=== PATIENT | male | born 1980 | race Caucasian/White ===

== ENCOUNTER 2016-07-19 11:48 | Emergency (ER) | payer SELFPAY ==
[~2016-07-19] VITALS: Ht 162.6 cm; Wt 52.2 kg
[2016-07-19] MEDS ORDERED: NALOXONE HCL 0.4 MG/ML AMPUL ONE (11:52)
--- NOTE | 2016-07-19 11:55 | NUR ---
PT BIB [facility] FOR SUSPECTED DRUG OD. UNKNOWN DRUG USE. PER RESCUE, PT WAS BRADYPNEIC AND HYPOTENSIVE, RECEIVED INTRANASAL NARCAN [employer] BAILIFF. RECEIVED PT ALERT AND VERBALLY RESPONSIVE BUT DISORIENTED. PT ARGUED WITH STAFF UPON INITIAL ASSESSMENT STATING "GIVE ME THE POPTARTS. SHE WON'T GIVE ME THE POPTARTS". PT IS ORIENTED TO SELF AND PLACE. RESP EVEN UNLABORED, OXYGENATING WNL ON ROOM AIR. SKIN WARM NONDIAPHORETIC. NAD NOTED. UNWILLING OR UNABLE TO ANSWER FURTHER QUESTIONS OR PROVIDE MEDICAL HISTORY. IN ER BED 12 ON MONITOR.
[2016-07-19] MEDS: NALOXONE HCL 0.4 MG/ML AMPUL IV ONE (11:58)
[2016-07-19] MEDS ORDERED: ONDANSETRON HCL/PF 4 MG/2 ML VIAL ONE (12:00)
[2016-07-19] MEDS: ONDANSETRON HCL/PF 4 MG/2 ML VIAL IV ONE (12:08)
--- NOTE | 2016-07-19 12:11 | NUR ---
PT MORE ALERT NOW, MOVING AROUND ON BED AND YELLING AT STAFF. VSS. RESP EVEN UNLABORED.
--- NOTE | 2016-07-19 12:32 | NUR ---
PT PROVIDED URINE BY URINAL
--- NOTE | 2016-07-19 15:45 | NUR ---
PT URINATED ON HIMSELF AND THE FLOOR. PT STILL DOES NOT MAKE SENSE SOMETIMES WHEN SPOKEN TO. NAD NOTED. VSS. PT CLEANED AND LINENS CHANGED.
--- NOTE | 2016-07-19 17:51 | NUR ---
RESTING QUIETLY, NAD NOTED. EASILY AROUSABLE TO VERBAL STIMULUS.
--- NOTE | 2016-07-19 18:49 | NUR ---
IV removed. Catheter intact and site benign. Pressure and 4x4 applied to site. No bleeding noted. PT DISCHARGED; REFUSED TO SIGN DISCHARGE PAPERWORK OR VERBALIZE UNDERSTANDING. REFUSED TO ACCEPT DISCHARGE PAPERS. ESCORTED FROM ER BY SECURITY, WITH STEADY GAIT.
[2016-07-19 18:51] VITALS: BP 112/69
== END 2016-07-19 18:51 | disposition home or self-care (01) ==
LOC: ER 11:52
DX: F11.20 Opioid dependence, uncomplicated (principal); E11.9 Type 2 diabetes mellitus without complications
CPT/HCPCS: 96374; 96375; 99284; A4606; J2310; J2405; Z7610

== ENCOUNTER 2016-10-04 19:53 | Emergency (ER) | payer SELFPAY ==
[~2016-10-04] VITALS: Ht 162.6 cm; Wt 52.2 kg
--- NOTE | 2016-10-04 20:04 | NUR ---
PT BIB RA AND TAKEN TO ROOM #4 WITH A C/O LT EYEBROW LAC S/P FALLING ASLEEP AFTER DOING DRUGS AND HITTING HIS HEAD ON A WALL. PT IS AA&O X3. PT IS ON THE MONITOR AND CONTINUOUS PULSE OX. VSS.
--- NOTE | 2016-10-04 20:10 | NUR ---
DG ALICEA IS AT THE BEDSIDE CLEANING LACERATION WITH NS.
--- NOTE | 2016-10-04 20:24 | NUR ---
DG ALICEA IS AT THE BEDSIDE.
[2016-10-04] MEDS ORDERED: IV NS 0.9% 2,000 ML ONE (20:29)
[2016-10-04] MEDS ORDERED: INSULIN REGULAR, HUMAN 100 UNIT/ML 10 ML VIAL ONE (20:30)
[2016-10-04] MEDS ORDERED: INSULIN REGULAR, HUMAN 100 UNIT/ML 10 ML VIAL IV ONE (20:30)
[2016-10-04] MEDS ORDERED: IV NS 0.9% 1,000 ML BAG IV ONE ×2 (20:30)
[2016-10-04] MEDS ORDERED: IV SET PRIMARY 1 EA INFUS.SET MC ONE (20:30)
--- NOTE | 2016-10-04 20:42 | NUR ---
PT'S LT EYEBROW LAC WAS DERMABONDED BY DG ALICEA.
--- NOTE | 2016-10-04 20:43 | NUR ---
ADMINISTERED INSULIN. DOSE CONFIRMED WITH FLAKITA
[2016-10-04 20:52] LABS: BASOPHILS # (AUTO) 0.1 /CMM (0.0-0.2); BASOPHILS % (AUTO) 0.6 % (0.0-2.0); EOSINOPHILS # (AUTO) 0.2 /CMM (0.0-0.7); EOSINOPHILS % (AUTO) 2.3 % (0.0-6.0); HEMATOCRIT 33 % (39-51); LYMPHOCYTES % (AUTO) 19.8 % (20.0-44.0); MEAN CORPUSCULAR HEMOGLOBIN 33 PG (26.0-33.0); MEAN CORPUSCULAR HGB CONC 33 g/dl (31.0-36.0); MEAN CORPUSCULAR VOLUME 97 fL (80-96); MONOCYTES # (AUTO) 0.3 /CMM (0.1-1.30); MONOCYTES % (AUTO) 3.3 % (2.0-12.0); NEUTROPHILS # (AUTO) 7.8 /CMM (1.8-8.9); PLATELET COUNT (AUTO) 304 /CMM (150-450); RDW COEFFICIENT OF VARIATION 11.8 (11.5-15.0); RED BLOOD CELL COUNT(AUTO) 3.39 MIL/uL (4.5-6.0); WHITE BLOOD COUNT (AUTO) 10.4 K/uL (4.3-11.0)
[2016-10-04 21:09] LABS: CALCIUM, SERUM 7.9 mg/dL (8.5-10.1); POTASSIUM 3.6 mmol/L (3.5-5.1)
--- NOTE | 2016-10-04 21:15 | NUR ---
ACCUCHECK TAKEN. BS = 423. DG ALICEA IS AWARE.
--- NOTE | 2016-10-04 21:58 | NUR ---
IV removed. Catheter intact and site benign. Pressure and 4x4 applied to site. No bleeding noted. Patient discharged to home in stable condition. Written and verbal after care instructions given. Patient verbalizes understanding of instruction. PT REC'D AN EGG SALAD SANDWICH. PT AMBULATED OUT WITH A STEADY GAIT. VSS.
[2016-10-04 21:59] VITALS: BP 98/72
== END 2016-10-04 21:59 | disposition home or self-care (01) ==
LOC: ER 19:53
DX: S01.112A Laceration without foreign body of left eyelid and periocular area, initial encounter (principal); F11.10 Opioid abuse, uncomplicated; E10.649 Type 1 diabetes mellitus with hypoglycemia without coma; Z59.0 Homelessness; D64.9 Anemia, unspecified; E87.8 Other disorders of electrolyte and fluid balance, not elsewhere classified; D75.89 Other specified diseases of blood and blood-forming organs; Z79.4 Long term (current) use of insulin; W19.XXXA Unspecified fall, initial encounter; Y93.89 Activity, other specified; Y92.89 Other specified places as the place of occurrence of the external cause; Y99.8 Other external cause status
CPT/HCPCS: 36415; 80048-TC; 82962-TC; 85025-TC; A4606; A6402; J1815; J7030; Z7610

== ENCOUNTER 2018-01-09 00:07 | Inpatient (IN) | payer MEDICAID ==
[~2018-01-09] VITALS: Ht 170.2 cm; Wt 50.3 kg
--- NOTE | 2018-01-09 00:14 | NUR ---
ER MD BIRD AT BEDSIDE
--- NOTE | 2018-01-09 00:15 | NUR ---
POLO RA/ [employer] IN CUSTODY FROM RESIDENTIAL FOR OD. NARCAN GIVEN PRECISION DYER. AA/X1. AROUSABLE TO PAIN ONLY. NO S/S OF SOB. SKIN PINK, WARM, DRY. NO TRAUMA NOTED. PEDAL PULSES PRESENT. MOVES ALL EXTREMITIES WELL. NAD. VSS. WILL CONTINUE TO MONITOR.
[2018-01-09] MEDS ORDERED: IV NS 0.9% 1,000 ML BAG IV ONE (00:30)
[2018-01-09 00:44] LABS: ABG BASE EXCESS 1.9 mmol/L; ABG OXYGEN SATURATION 94.9 % (92.0-98.5); ABG PCO2 41.9 mmHg (35.0-45.0); ABG PH 7.421 (7.350-7.450); ABG PO2 75.6 mmHg (75.0-100.0); COHb 1.4 % (0.5-1.5); MetHb 0.4 % (0.0-1.5); O2Hb 93.2 % (94.0-97.0); SITE, ABG Right Brachial; VENT MODE, BG RA
[2018-01-09 01:08] LABS: BASOPHILS % (AUTO) 0.3 % (0.0-2.0); EOSINOPHILS % (AUTO) 4.5 % (0.0-6.0); HEMATOCRIT 42 % (39-51); HEMOGLOBIN 13.3 g/dL (13.5-17.5); LYMPHOCYTES # (AUTO) 2.9 /CMM (0.8-4.8); LYMPHOCYTES % (AUTO) 28.3 % (20.0-44.0); MEAN CORPUSCULAR HGB CONC 32 g/dl (31.0-36.0); MEAN CORPUSCULAR VOLUME 94 fL (80-96); MONOCYTES # (AUTO) 0.7 /CMM (0.1-1.30); NEUTROPHILS # (AUTO) 6.1 /CMM (1.8-8.9); NEUTROPHILS % (AUTO) 59.9 % (43.0-81.0); PLATELET COUNT (AUTO) 281 /CMM (150-450); RED BLOOD CELL COUNT(AUTO) 4.44 MIL/uL (4.5-6.0); WHITE BLOOD COUNT (AUTO) 10.3 K/uL (4.3-11.0)
[2018-01-09 01:14] LABS: APPEARANCE,URINE CLEAR (CLEAR); BILIRUBIN,URINE NEGATIVE (NEGATIVE); BLOOD, URINE NEGATIVE Ery/uL (NEGATIVE); COLOR,URINE YELLOW (YELLOW); KETONES,URINE NEGATIVE (NEGATIVE); LEUKOCYTE ESTERASE ,URINE NEGATIVE (NEGATIVE); NITRITE, URINE NEGATIVE (NEGATIVE); PH,URINE 7.5 (5.0-8.0); PROTEIN,URINE NEGATIVE (NEGATIVE); UGLUCOSE 3+ mg/dL (NEGATIVE); UROBILINOGEN,URINE 0.2 EU/dL (0.2)
--- NOTE | 2018-01-09 01:16 | NUR ---
PT OFF TO CT
[2018-01-09 01:18] LABS: BACTERIA,URINE None seen /HPF (None Seen); RBC,URINE NONE SEEN /HPF (0-2); SQUAMOUS EPITHELIAL CELL,UR Few /HPF (None Seen); WBC,URINE 0-2 /HPF (0-3)
[2018-01-09 01:29] LABS: INR 1.07 (0.87-1.13)
[2018-01-09 01:33] LABS: CALCIUM, SERUM 9.3 mg/dL (8.5-10.1); CARBON DIOXIDE 29 mmol/L (21-32); CHLORIDE 96 mmol/L (98-107); POTASSIUM 4.2 mmol/L (3.5-5.1); SODIUM SERUM 132 mmol/L (136-145); UREA NITROGEN, BLOOD 9 mg/dL (7-18)
[2018-01-09 01:34] LABS: ALANINE AMINOTRANSFERASE 28 U/L (12-78); ALBUMIN 3.3 g/dL (3.4-5.0); ALKALINE PHOSPHATASE 104 U/L (46-116); ASPARTATE AMINOTRANSFERASE 31 U/L (15-37); BILIRUBIN,DIRECT 0.1 mg/dL (0.0-0.2); BILIRUBIN,TOTAL 0.4 mg/dL (0.2-1.0); PHOSPHORUS 3.5 mg/dL (2.5-4.9); TOTAL PROTEIN, SERUM 8.5 g/dL (6.4-8.2)
[2018-01-09 01:35] LABS: GLUCOSE 642 mg/dL (74-106)
[2018-01-09 01:36] LABS: ACETAMINOPHEN 0 ug/ml (10-30); ALCOHOL, BLOOD < 3 mg/dL (0-0); SALICYLATE 1.8 mg/dL (2.8-20.0)
[2018-01-09 01:44] LABS: TROPONIN I < 0.017 ng/mL (0.00-0.056)
[2018-01-09 01:47] LABS: THYROID STIMULATING HORMONE 1.517 uIU/mL (0.358-3.74)
[2018-01-09] MEDS ORDERED: PIPERACILLIN /TAZOBACTAM 3.375 G in IV D5W 50 ML IV ONE (03:30)
[2018-01-09] MEDS ORDERED: INSULIN REGULAR, HUMAN 100 UNIT/ML 10 ML VIAL SQ ONE (03:30)
[2018-01-09] MEDS ORDERED: PIPERACILLIN /TAZOBACTAM 3.375 G VIAL IV ONE (03:42)
[2018-01-09] MEDS ORDERED: INSULIN REGULAR, HUMAN 100 UNIT/ML 10 ML VIAL ONE (03:42)
[2018-01-09] MEDS ORDERED: IV NS 0.9% 1,000 ML IV PRN (03:50)
[2018-01-09] MEDS ORDERED: Z GUARD REMEDY 2 OZ OINT TP PRN (04:00)
[2018-01-09] MEDS ORDERED: ALBUTEROL FS 2.5 MG/3 ML VIAL.NEB NEB PRN (04:00)
[2018-01-09] MEDS ORDERED: ONDANSETRON HCL/PF 4 MG/2 ML VIAL IVP PRN (04:00)
[2018-01-09] MEDS ORDERED: MAGNESIUM HYDROXIDE 30 ML UDC PO PRN (04:00)
[2018-01-09] MEDS ORDERED: MORPHINE SULFATE INJ 4 MG/ML DISP.SYRIN IV PRN (04:00)
[2018-01-09] MEDS ORDERED: MAG HYDROX/AL HYDROX/SIMETH 30 ML UDC PO PRN (04:00)
[2018-01-09] MEDS ORDERED: HYDROCODONE/APAP 5/325MG 1 EACH TABLET PO PRN (04:00)
[2018-01-09] MEDS ORDERED: ZOLPIDEM TARTRATE 5 MG TABLET PO PRN (04:00)
[2018-01-09] MEDS ORDERED: INSULIN REGULAR, HUMAN 100 UNIT/ML 3 ML VIAL SQ PRN (04:00)
[2018-01-09] MEDS ORDERED: DEXTROSE 50%-WATER 50 ML DISP.SYRIN IV PRN (04:00)
[2018-01-09] MEDS ORDERED: ACETAMINOPHEN 325 MG TABLET PO PRN (04:00)
--- NOTE | 2018-01-09 04:43 | NUR ---
REPORT GIVEN TO POLLO
[2018-01-09] MEDS ORDERED: INSULIN GLARGINE, 100 UNIT/ML CARTRIDGE SQ ONE (04:45)
[2018-01-09] MEDS ORDERED: CEFTRIAXONE 1 G in IV D5W 50 ML IV SCH (05:00)
[2018-01-09] MEDS ORDERED: ENOXAPARIN SODIUM 40 MG/0.4 ML DISP.SYRIN SQ SCH (05:00)
--- NOTE | 2018-01-09 05:00 | NUR ---
ADMITTED FROM ER ,WHO PRESENTED FROM LONG TERM ,WAS FOUND UNRESPONSIVE WITH PUPILS PINPOINT.hX OF DM,HEROIN ABUSE PSYCHE DISORDER. IN ER BLOOD FHZXA=974,LACTIC ACID=2.9.WAS GIVEN IVFLUID NSS 1700 ML,STARTED ON ZOSYN AND REGULAR INSULIN [address] SPINE AND CERVICAL (-),CT HEAD (-),CXR (-).URINE TOX + CANNABINOIDS.RECEIVED PATIENT STILL DROWSY BUT AROUSABLE,UNCOOPERATIVE,REFUSED TO ANSWER AND DOES NOT FOLLOW COMMANDS.
[2018-01-09 06:00] VITALS: BP 124/80
[2018-01-09] MEDS ORDERED: CEFTRIAXONE 1 G VIAL ONE (06:51)
[2018-01-09] MEDS: BLOOD SUGAR DIAGNOSTIC 1 EACH STRIP IN SCH ×3 (07:01→12:18)
[2018-01-09 08:00] VITALS: BP_SYST 130; BP_SYST 134; BP_DIAS 71; BP_DIAS 75
[2018-01-09] MEDS ORDERED: INSU100I14 SQ (08:08)
[2018-01-09] MEDS ORDERED: LISI2.5T2 PO (08:08)
[2018-01-09] MEDS ORDERED: INSU100V7 SQ (08:08)
[2018-01-09 12:00] VITALS: BP_SYST 132; BP_SYST 135; BP_DIAS 75; BP_DIAS 78
[2018-01-09 12:22] LABS: BASOPHILS # (AUTO) 0.1 /CMM (0.0-0.2); BASOPHILS % (AUTO) 0.5 % (0.0-2.0); EOSINOPHILS % (AUTO) 0.8 % (0.0-6.0); HEMATOCRIT 41 % (39-51); HEMOGLOBIN 13.1 g/dL (13.5-17.5); LYMPHOCYTES # (AUTO) 2.4 /CMM (0.8-4.8); LYMPHOCYTES % (AUTO) 19.3 % (20.0-44.0); MEAN CORPUSCULAR HGB CONC 32 g/dl (31.0-36.0); MEAN CORPUSCULAR VOLUME 94 fL (80-96); MONOCYTES # (AUTO) 0.6 /CMM (0.1-1.30); MONOCYTES % (AUTO) 5.2 % (2.0-12.0); NEUTROPHILS # (AUTO) 9.1 /CMM (1.8-8.9); NEUTROPHILS % (AUTO) 74.2 % (43.0-81.0); PLATELET COUNT (AUTO) 301 /CMM (150-450); RDW COEFFICIENT OF VARIATION 13.9 (11.5-15.0); RED BLOOD CELL COUNT(AUTO) 4.34 MIL/uL (4.5-6.0); WHITE BLOOD COUNT (AUTO) 12.2 K/uL (4.3-11.0)
[2018-01-09 12:39] LABS: CALCIUM, SERUM 8.5 mg/dL (8.5-10.1); CREATININE 0.5 mg/dL (0.6-1.3); MAGNESIUM 1.7 mg/dL (1.8-2.4); POTASSIUM 3.2 mmol/L (3.5-5.1)
--- NOTE | 2018-01-09 12:40 | NUR ---
RN NOTE; PATIENT RECEIVED ASLEEP, EASILY AROUSAL. VERBALLY RESPONSIVE, NOT VERY TALKATIVE. ON ROOM AIR. NO BREATHING DISTRESS NOTED. NO S/S OF PAIN & DISCOMFORT NOTED. FALL PRECAUTIONS OBSERVED. SAFETY MEASURES OBSERVED. 0830: ACCU CHECK 122, REPEATED BS 137, DR. TREJO NOTIFIED ABOUT CLARIFICATION FOR LANTUS 20UNITS DUE TO GIVE. 1002: RECEIVED ORDERS FROM DR. TREJO, OK TO GIVE LANTUS 20 UNITS. 1230: BLOOD SUGAR 76, SNACKS GIVEN, LUNCH CONSUMED 50% WITH ENCOURAGEMENT. SAFETY MEASURES OBSERVED. ENCOURAGE TO USE CALL LIGHT FOR ASSISTANCE,.
[2018-01-09 16:00] VITALS: BP 153/66
--- NOTE | 2018-01-09 16:36 | NUR ---
RN NOTE: 1440: PATIENT CALLED FOR HELP, SAID I NEED NORCO 10/325 2 TABS, HAVING SEVERE HEADACHE, RESTLESS LEGS, ANXIETY, CHILLS... DR. TREJO NOTIFIED. WAITING FOR REPLY. SOON MOTORBOAT MECHANIC INBOARD/OUTBOARD MADE AWARE. OFFERED NORCO 5/325 MG 1 TAB, BUT PATIENT REFUSED TO TAKE IT. 1520: NOTED PATIENT SCREAMING, PULLED OUT IV LINE. VERBALIZED WANTS TO LEAVE. CALLED MOTORBOAT MECHANIC INBOARD/OUTBOARD. PER DR. TREJO NO OPIATES TO BE GIVEN. 1530: NOTED PATIENT SLEEPING, NO DISTRESS NOTED. SAFETY MEASURES OBSERVED. 1615: INDUSTRIAL TRAINING SPECIALIST WAS IN ROOM WITH OTHER PATIENT & NOTED PATIENT LEAVING FROM ROOM, SHE TRIED TO TALK TO HIM & HE RAN FROM FLOOR WITH ALL HIS BELONGINGS. CALLED SECURITY & MOTORBOAT MECHANIC INBOARD/OUTBOARD AWARE. DR. TREJO NOTIFIED BY MOTORBOAT MECHANIC INBOARD/OUTBOARD.
== END 2018-01-09 16:15 | disposition left against medical advice (07) | DRG 420 ==
LOC: ER 00:13 → TELE1 04:26
PROVIDERS: ADMIT Internal Medicine
DX: E11.65 Type 2 diabetes mellitus with hyperglycemia (principal); E83.42 Hypomagnesemia; F11.10 Opioid abuse, uncomplicated; Z79.4 Long term (current) use of insulin; Z79.899 Other long term (current) drug therapy; E87.6 Hypokalemia
CPT/HCPCS: 36415; 36600; 70450-TC; 71045-TC; 72125-TC; 80048-TC; 80076-TC; 80305; 81000-TC; 82010-TC; 82803-TC; 82962-TC; 83540-TC; 83605-TC; 83735-TC; 84100-TC; 84443-TC; 84484-TC; 85025-TC; 85730-TC; 87040-TC; 87081-TC; 87086-TC; A4606; G0480; J0696; J1650; J1815; J2405; J2543; J7030; J7060; Z7610

== ENCOUNTER 2018-05-27 17:52 | Inpatient (IN) | payer MEDICAID ==
[~2018-05-27] VITALS: Ht 165.1 cm; Wt 50.4 kg
[~2018-05-27 17:52] MED LIST: INSU100I14 SQ; INSU100V7 SQ; LISI2.5T2 PO
[2018-05-27 20:50] VITALS: BP 107/73
--- NOTE | 2018-05-27 20:50 | NUR ---
QUALITY ANALYST ADMISSION NOTES ADMITTED A 37 Y/O, MALE PATIENT, (DIRECT ADMIT) FROM ANOTHER ACUTE FACILITY, [facility], TRANSPORTED VIA GURNEY. A/O X 1, WITH NON REBREATHER MASK SATING 98 - 100%, UPON ARRIVING TO THE UNIT, CHECKED BLOOD GLUCOSE 238 MG/DL, INITIAL VITAL SIGNS OBTAINED, RESPONDING SLOWLY TO VERBAL STIMULI, RESPONSIVE TO TACTILE STIMULI, ALL SAFETY MEASURES IN PLACED, BED IN LOW LOCK POSITION BEDSIDE RAILS UP X3, WITH IV ACCESS ON HIS RIGHT FOREARM G#18 INTACT AND PATENT, AND LEFT FOREARM G#20 INTACT AND PATENT SL. ASPIRATION PRECAUTION OBSERVED, ADMISSION PROCESS INITIATED, SCRAP COLLECTOR KESHIA MITCHELL MADE AWARE. WILL MONITOR ACCORDINGLY.
[2018-05-27 21:23] LABS: ABG BASE EXCESS 3.4 mmol/L; ABG OXYGEN SATURATION 95.1 % (92.0-98.5); ABG PCO2 34.3 mmHg (35.0-45.0); ABG PH 7.502 (7.350-7.450); ABG PO2 73.4 mmHg (75.0-100.0); AaDO2 114.6 mmHg; COHb 0.8 % (0.5-1.5); MetHb 0.5 % (0.0-1.5); O2Hb 93.9 % (94.0-97.0); SITE, ABG Left Radial; VENT MODE, BG 3 lpm cannula
[2018-05-27] MEDS ORDERED: MAG HYDROX/AL HYDROX/SIMETH 30 ML UDC PO PRN (21:30)
[2018-05-27] MEDS ORDERED: MAGNESIUM HYDROXIDE 30 ML UDC PO PRN (21:30)
[2018-05-27] MEDS ORDERED: ONDANSETRON HCL/PF 4 MG/2 ML VIAL IVP PRN (21:30)
[2018-05-27] MEDS ORDERED: ACETAMINOPHEN 325 MG TABLET PO PRN (21:30)
[2018-05-27 21:37] VITALS: BP 119/76
[2018-05-27] MEDS: ENOXAPARIN SODIUM 40 MG/0.4 ML DISP.SYRIN SQ SCH (21:48)
[2018-05-27] MEDS ORDERED: POTASSIUM CHLORIDE 20 MEQ TAB.PRT.SR PO ONE (22:00)
[2018-05-27] MEDS ORDERED: DEXTROSE 50%-WATER 50 ML DISP.SYRIN IV PRN (22:00)
[2018-05-27] MEDS: BLOOD SUGAR DIAGNOSTIC 1 EACH STRIP VI SCH (22:04)
[2018-05-27] MEDS: IV NS 0.9% 1,000 ML IV PRN (22:04)
[2018-05-27] MEDS: *INSULIN REGULAR(HUMULIN R)HUM 100 UNIT/ML VIAL SQ PRN (22:08)
[2018-05-27] MEDS ORDERED: PIPERACILLIN /TAZOBACTAM 3.375 G VIAL IV ONE (22:23)
[2018-05-27] MEDS ORDERED: VANCOMYCIN 1 GM VIAL ONE (22:24)
[2018-05-27 22:29] VITALS: BP 122/70
[2018-05-27 23:00] VITALS: BP 122/70
[2018-05-27] MEDS ORDERED: VANCOMYCIN 1 GM in IV D5W 250ml IV ONE (23:00)
[2018-05-28] MEDS ORDERED: PIPERACILLIN /TAZOBACTAM 3.375 G in IV D5W 100 ML IV ONE ×2
[2018-05-28 00:10] VITALS: BP 130/74
[2018-05-28 04:00] VITALS: BP 109/68
[2018-05-28] MEDS: IV NS 0.9% 1,000 ML IV PRN ×2 (06:08→15:51)
[2018-05-28 06:47] LABS: BASOPHILS % (AUTO) 0.1 % (0.0-2.0); HEMATOCRIT 37 % (39-51); HEMOGLOBIN 12.1 g/dL (13.5-17.5); LYMPHOCYTES # (AUTO) 2.2 /CMM (0.8-4.8); LYMPHOCYTES % (AUTO) 6.8 % (20.0-44.0); MEAN CORPUSCULAR HGB CONC 33 g/dl (31.0-36.0); MEAN CORPUSCULAR VOLUME 94 fL (80-96); MONOCYTES # (AUTO) 1.7 /CMM (0.1-1.30); MONOCYTES % (AUTO) 5.4 % (2.0-12.0); NEUTROPHILS # (AUTO) 27.9 /CMM (1.8-8.9); NEUTROPHILS % (AUTO) 87.7 % (43.0-81.0); PLATELET COUNT (AUTO) 221 /CMM (150-450); RED BLOOD CELL COUNT(AUTO) 3.95 MIL/uL (4.5-6.0)
[2018-05-28 06:50] LABS: CALCIUM, SERUM 7.8 mg/dL (8.5-10.1); CREATININE 0.7 mg/dL (0.6-1.3); MAGNESIUM 1.7 mg/dL (1.8-2.4); PHOSPHORUS 1.7 mg/dL (2.5-4.9); POTASSIUM 3.2 mmol/L (3.5-5.1)
[2018-05-28] MEDS: INSULIN REGULAR, HUMAN 100 UNIT/ML 3 ML VIAL SQ PRN ×3 (06:55→17:30)
[2018-05-28 06:58] LABS: WHITE BLOOD COUNT (AUTO) 31.8 K/uL (4.3-11.0)
[2018-05-28 07:24] LABS: THYROID STIMULATING HORMONE 1.571 uIU/mL (0.358-3.74)
--- NOTE | 2018-05-28 07:25 | NUR ---
ENTRY LEVEL SALES REPRESENTATIVE NOTES ALL NEEDS ATTENDED AND MET, ENDORSED TO AM NURSE FOR CONTINUITY OF CARE.
--- NOTE | 2018-05-28 07:26 | NUR ---
RN NOTES PT WAS RECEIVED RESTING IN BED AT LOWEST AND LOCKED POSITION WITH SIDE RAILS UP X2, A/O X1, BREATHING IS EVEN AND UNLABORED, NO S/S OF DISTRESS OR PAIN NOTED, IV IS PATENT AND INTACT, WBC NOTED TO BE HIGH AUTOMOTIVE PARTS MANAGER RN UZAIR PANIAGUA MD REGARDING LAB VALUE, SAFETY PRECAUTIONS IN PLACE, CALL LIGHT WITHIN REACH, WILL MONITOR ACCORDINGLY
--- NOTE | 2018-05-28 07:26 | NUR ---
FIELD SERVICE TECHNICIAN NOTES RECEIVED CALL FROM LABS, CRITICAL LAB VALUE, WBC 31.8, NOTIFY MD, AWAITING FOR ORDERS, ENDORSED TO AM NURSE.
[2018-05-28] MEDS: BLOOD SUGAR DIAGNOSTIC 1 EACH STRIP VI SCH ×4 (07:27→21:47)
[2018-05-28 08:00] VITALS: BP 109/72
[2018-05-28] MEDS ORDERED: PIPERACILLIN /TAZOBACTAM 3.375 G in IV D5W 50 ML IV SCH (08:00)
[2018-05-28] MEDS ORDERED: FEE PK DOSING 1 MIN EA MC ONE (08:26)
--- NOTE | 2018-05-28 08:45 | NUR ---
RN NOTE LAB WAS CALLED INFORMING THEM OF STAT LAB DRAW ORDER
[2018-05-28 08:48] LABS: BAND % (MANUAL) 6 % (0.0-5.0); LYMPHOCYTES % (MANUAL) 6 % (16-48); MONOCYTES % (MANUAL) 6 % (0-11.0); NEUTROPHILS % (MANUAL) 82 (42-76)
[2018-05-28] MEDS: VANCOMYCIN 0.75 GM in IV D5W 250 ML IV SCH ×2 (09:38→16:02)
[2018-05-28] MEDS: Magnesium 1GM/D5W 100ML PREMIX 100 ML IV SCH ×2 (09:58→11:07)
--- NOTE | 2018-05-28 10:17 | NUR ---
RN NOTE HOSPITALIST BRITTANY PEACE MADE AWARE OF PT ELEVATED PROCALCITONIN LEVEL
--- NOTE | 2018-05-28 10:38 | NUR ---
Social service assessment requested by ALLISON Juarez for homelessness and heroin use. Pt. is a 37 year old male who was admitted to [facility] for pneumonia/sepsis. SW attempted to meet with pt, however pt. was asleep and was not waking up easily when SW tried to. SW to come back later to reassess.
[2018-05-28] MEDS ORDERED: INSU100I30 SQ (10:50)
[2018-05-28] MEDS ORDERED: BLOO-668 IN (10:50)
[2018-05-28] MEDS: PIPERACILLIN /TAZOBACTAM 3.375 G in IV D5W 100 ML IV SCH ×2 (10:56→18:16)
--- NOTE | 2018-05-28 11:50 | NUR ---
WOUND CARE CONSULT: PT PRESENTS WITH CRACKED SKIN AND CALLUSES TO BILATERAL FEET AND POSTERIOR ANKLE AREAS WITH LONG CURLING TOENAILS, MULTIPLE SCARS AND SCABS TO BODY INCLUDING BILATERAL BUTTOCK AND HIP SCARS, LEFT EAR DARK DISCOLORATION, PRESENT ON ADMISSION. RECOMMEND DPM CONSULT. DEFER TO MD FOR LEFT EAR. RECOMMEND DIETARY FOLLOWUP. WILL SEE PRN. DISCUSSED SKIN PROTECTION WITH NURSING STAFF. MD IN AGREEMENT WITH PLAN OF CARE. Addendum: 05/28/18 at 1152 by DARIO HAMMER WNDNU Amended: Links added.
[2018-05-28] MEDS ORDERED: K PHOS NEUTRAL 250 MG TABLET PO ONE (12:00)
[2018-05-28] MEDS ORDERED: Z GUARD REMEDY 2 OZ OINT TP PRN (12:00)
[2018-05-28] MEDS ORDERED: POTASSIUM CHLORIDE 20 MEQ TAB.PRT.SR PO SCH (12:00)
--- NOTE | 2018-05-28 14:40 | NUR ---
SW went to assess pt. again bedside. However, pt. is still asleep and not waking up easily. Pt. has not eaten his lunch either. SW to assess tomorrow when pt. is more alert and oriented.
[2018-05-28 16:00] VITALS: BP 108/67
[2018-05-28] MEDS: HYDROCODONE/APAP 5/325MG 1 EACH TABLET PO PRN (16:29)
--- NOTE | 2018-05-28 17:30 | NUR ---
RN NOTE BLOOD SUGAR WAS NOTED TO BE 129 AT THIS TIME, NO INSULIN NEEDED OR GIVEN AT THIS TIME ACCORDING TO SLIDING SCALE
--- NOTE | 2018-05-28 17:45 | NUR ---
RN NOTE PT WAS GIVEN BED BATH AT THIS TIME
--- NOTE | 2018-05-28 18:39 | NUR ---
RN CLOSING NOTES PT RESTING IN BED AT LOWEST AND LOCKED POSITION WITH SIDE RAILS UP X2, A/O X2-3, BREATHING IS EVEN AND UNLABORED, NO S/S OF DISTRESS OR PAIN, IV SITES ARE PATENT AND INTACT, SAFETY PRECAUTIONS IN PLACE, CALL LIGHT WITHIN REACH, ALL NEEDS ATTENDED TO, WILL ENDORSE TO SPIRITS MODEL RN FOR ALEXANDER
--- NOTE | 2018-05-28 19:30 | NUR ---
MS RN NOTES RECEIVED ON BED SLEEPING,AROUSABLE TO VERBAL STIMULI,HOMELESS,WITH IVF OF NS AT 150ML/HR RATE,SITE PATENT ON RFA.WITH LFA SALINE LOC FOR MEDS,SANCHEZ CATH IN PLACE DRAINING CLEAR YELLOW OUTPUT.FALL PRECAUTIONS OBSERVED,STAND UP WITH PT.CALL LIGHT IN REACH,NEEDS ANTICIPATED.
[2018-05-28 20:00] VITALS: BP 108/74
[2018-05-28 20:23] VITALS: BP 108/74
[2018-05-28] MEDS: ENOXAPARIN SODIUM 40 MG/0.4 ML DISP.SYRIN SQ SCH (20:41)
[2018-05-28] MEDS: *INSULIN REGULAR(HUMULIN R)HUM 100 UNIT/ML VIAL SQ PRN (21:55)
--- NOTE | 2018-05-28 22:00 | NUR ---
MS RN NOTES ACCU-CHECK BLOOD SUGAR CHECK 153,2 UNITS OF HUMULIN R HELD DUE TO WEAKNESS AND NON EATING.WILL CONTINUE TO MONITOR STATUS.
[2018-05-29] MEDS: VANCOMYCIN 0.75 GM in IV D5W 250 ML IV SCH ×3 (00:54→17:09)
[2018-05-29] MEDS: HYDROCODONE/APAP 5/325MG 1 EACH TABLET PO PRN (00:54)
--- NOTE | 2018-05-29 00:54 | NUR ---
MS RN NOTES C/O MILD CHEST PAIN 4/10 ON PAIN SCALE,MEDICATED WITH NORCO 5/325MG,1 TAB PO GIVEN ORDERED.
[2018-05-29] MEDS: PIPERACILLIN /TAZOBACTAM 3.375 G in IV D5W 100 ML IV SCH ×3 (02:04→17:10)
[2018-05-29] MEDS: BLOOD SUGAR DIAGNOSTIC 1 EACH STRIP VI SCH ×4 (06:13→21:53)
--- NOTE | 2018-05-29 06:15 | NUR ---
MS RN NOTES ACCU-CHECK BLOOD SUGAR CHECK 250,WILL COVER WITH HUMULIN R 6 UNITS PER SLIDING SCALE BY DAY NURSE
--- NOTE | 2018-05-29 06:18 | NUR ---
MS RN NOTES ON BED,SLEPT WITH INTERVALS,APPEARS WEAK,SANCHEZ CATH IN PLACE,IVF IN PROGRESS ON RIGHT FOREARM,FALL PRECAUTION OBSERVED.BED ON LOWEST POSITION AND LOCKED.CALL LIGHT IN REACH,NEEDS ATTENDED.WILL ENDORSE TO DAY NURSE FOR ALEXANDER.
--- NOTE | 2018-05-29 07:30 | NUR ---
RN NOTES RECEIVED PATIENT IN BED SLEEPING, AROUSABLE TO VERBAL STIMULI, ABLE TO MAKE NEEDS KNOW, RESPONDS TO QUESTION APPROPRIATELY BUT WITH EYES CLOSED, DENIES ANY PAIN AT THIS TIME. ON ROOM AIR, NO SOB. WITH IV LINE ON THE RFA G 18: IN PLACE AND INTACT, PATENT ON FLUSHING. WITH NS AT 150ML/HR RATE. LFA G 20: IN PLACE AND INTACT, PATENT ON FLUSHING: HL. PATIENT ABLE TO MOVE ABOUT IN BED. SANCHEZ CATH IN PLACE DRAINING TO CLEAR YELLOW OUTPUT VIA GRAVITY. SAFETY MEASURES OBSERVED AND MAINTAINED. CALL LIGHT PLACED WITHIN EASY REACH, WILL ANTICIPATE NEED AND MONITOR PATIENT CLOSELY.
[2018-05-29 08:00] VITALS: BP 112/72
[2018-05-29 08:11] LABS: CALCIUM, SERUM 7.1 mg/dL (8.5-10.1); CREATININE 0.5 mg/dL (0.6-1.3); MAGNESIUM 1.6 mg/dL (1.8-2.4); PHOSPHORUS 1.6 mg/dL (2.5-4.9); POTASSIUM 3.1 mmol/L (3.5-5.1)
[2018-05-29 08:32] LABS: BASOPHILS % (AUTO) 0.1 % (0.0-2.0); EOSINOPHILS % (AUTO) 0.4 % (0.0-6.0); HEMATOCRIT 36 % (39-51); HEMOGLOBIN 11.6 g/dL (13.5-17.5); LYMPHOCYTES # (AUTO) 2.1 /CMM (0.8-4.8); LYMPHOCYTES % (AUTO) 9.4 % (20.0-44.0); MEAN CORPUSCULAR HGB CONC 33 g/dl (31.0-36.0); MEAN CORPUSCULAR VOLUME 94 fL (80-96); MONOCYTES # (AUTO) 1.1 /CMM (0.1-1.30); MONOCYTES % (AUTO) 5.1 % (2.0-12.0); PLATELET COUNT (AUTO) 207 /CMM (150-450); RED BLOOD CELL COUNT(AUTO) 3.82 MIL/uL (4.5-6.0); WHITE BLOOD COUNT (AUTO) 22.3 K/uL (4.3-11.0)
[2018-05-29] MEDS: INSULIN REGULAR, HUMAN 100 UNIT/ML 3 ML VIAL SQ PRN ×2 (09:03→12:20)
[2018-05-29] MEDS: POTASSIUM CHLORIDE 20 MEQ TAB.PRT.SR PO SCH ×2 (09:52→10:30)
[2018-05-29] MEDS: Magnesium 1GM/D5W 100ML PREMIX 100 ML IV SCH ×2 (09:53→12:41)
[2018-05-29] MEDS: IV NS 0.9% 1,000 ML IV PRN (09:54)
--- NOTE | 2018-05-29 11:29 | NUR ---
SW met with pt. bedside for a psychosocial assessment. Pt. is alert and oriented x 4. Pt. appearance is disheveled. Pt. was cooperative and pleasant with SW during the assessment. Pt. states he is homeless and has been for a year. Prior to being homeless, pt. was living in an apartment. Pt. receives General Relief and food stamps per month. Pt. uses crystal methamphetamines and heroin daily. Pt. has been using both substances for the past two years. Pt. was at [facility] program in [place] in summer 2017. However, pt. did not complete the program. Pt. also has a history of attending the rehab program at [facility] but left the program because they did not prescribe Suboxone. Pt. states he is interested in attending the detox program at [facility]. SCHUYLER to fax clinical referral packet to Goldie Zimmerman at [facility]. Pt. denies any psychiatric history and diagnosis. Pt. uses marijuana occasionally. Pt. smokes 4 to 5 cigarettes per day. SCHUYLER discussed [facility] with pt. and pt. is interested in going to the [place] [facility]. SCHUYLER to offer pt. winter prison placement and homeless resources upon discharge. SCHUYLER faxed clinical referral packet to Goldie Zimmerman at [facility].
[2018-05-29] MEDS ORDERED: POTASSIUM CHLORIDE 20 MEQ TAB.PRT.SR PO SCH (13:00)
[2018-05-29] MEDS ORDERED: POTASSIUM CHLORIDE 20 MEQ TAB.PRT.SR PO ONE (13:15)
[2018-05-29] MEDS ORDERED: NEUTRA PHOS 1 POWD.PACKET NG ONE (15:45)
[2018-05-29 16:00] VITALS: BP 108/75
[2018-05-29] MEDS ORDERED: NEUTRA PHOS 1 POWD.PACKET PO ONE (16:00)
[2018-05-29 16:30] VITALS: BP 108/75
[2018-05-29] MEDS: CLOTRIMAZOLE 1% 15 GM TUBE TP SCH (17:10)
--- NOTE | 2018-05-29 19:30 | NUR ---
RN NOTES PATIENT ENDORSED FOR CONTINUITY OF CARE. ALL NURSING NEEDS ATTENDED AND MET. SAFETY MEASURES IN PLACE AT ALL TIMES. CALL LIGHT WITHIN REACH AT ALL TIMES
--- NOTE | 2018-05-29 19:30 | NUR ---
MS RN NOTES RECEIVED IN THE BATHROOM,SHOWERING,ABLE TO WALK WITH STEADY GAIT.IV ABX INFUSING.SALINE LOCK RIGHT AND LEFT ARM INTACT AND PATENT.CALL LIGHT IN REACH,NEEDS ANTICIPATED.
[2018-05-29 20:00] VITALS: BP 118/71
[2018-05-29] MEDS: ENOXAPARIN SODIUM 40 MG/0.4 ML DISP.SYRIN SQ SCH (20:26)
--- NOTE | 2018-05-29 21:00 | NUR ---
MS RN NOTES FOUND PATIENT HAVING SHOWER AGAIN.
[2018-05-29] MEDS: *INSULIN REGULAR(HUMULIN R)HUM 100 UNIT/ML VIAL SQ PRN (21:58)
[2018-05-29] MEDS ORDERED: INSULIN GLARGINE, 100 UNIT/ML CARTRIDGE SQ SCH (22:00)
--- NOTE | 2018-05-29 22:00 | NUR ---
MS RN NOTES REFUSED IVF AT THIS TIME
--- NOTE | 2018-05-29 22:10 | NUR ---
MS RN NOTES ACCU-CHECK BLOOD SUGAR CHECK 369,CLAIMED HE ALREADY DRINK APPLE JUICE AND ATE PUDDING.COVERED WITH HUMULIN R 10 PER SLIDING SCALE PLUS 8 UNITS OF LANTUS,GIVEN SQ ON LEFT DELTOID
[2018-05-30] MEDS: VANCOMYCIN 0.75 GM in IV D5W 250 ML IV SCH ×2 (00:49→08:36)
[2018-05-30] MEDS: HYDROCODONE/APAP 5/325MG 1 EACH TABLET PO PRN (00:50)
--- NOTE | 2018-05-30 00:50 | NUR ---
MS RN NOTES C/O GENERALIZED PAIN,NORCO 5/325MG,1 TAB PO GIVEN
[2018-05-30] MEDS: PIPERACILLIN /TAZOBACTAM 3.375 G in IV D5W 100 ML IV SCH ×2 (02:07→10:42)
[2018-05-30] MEDS: BLOOD SUGAR DIAGNOSTIC 1 EACH STRIP VI SCH ×2 (05:28→11:36)
--- NOTE | 2018-05-30 05:30 | NUR ---
MS RN NOTES ACCU-CHECK BLOOD SUGAR CHECK 137,HUMULIN R 2 UNITS GIVEN PER SLIDING SCALE
[2018-05-30] MEDS: INSULIN REGULAR, HUMAN 100 UNIT/ML 3 ML VIAL SQ PRN (05:43)
--- NOTE | 2018-05-30 06:08 | NUR ---
MS RN NOTES SHOWERED 3 X AT NIGHT,HAD 1X .BM.VOIDING PER URINALIV ABX TOLERATED WELL,NO DISTRESS.ENDORSE TO DAY NURSE FOR ALEXANDER.
[2018-05-30 06:50] LABS: BASOPHILS % (AUTO) 0.3 % (0.0-2.0); EOSINOPHILS % (AUTO) 0.5 % (0.0-6.0); HEMATOCRIT 35 % (39-51); HEMOGLOBIN 11.8 g/dL (13.5-17.5); LYMPHOCYTES % (AUTO) 19.1 % (20.0-44.0); MEAN CORPUSCULAR HGB CONC 34 g/dl (31.0-36.0); MEAN CORPUSCULAR VOLUME 93 fL (80-96); MONOCYTES % (AUTO) 9.7 % (2.0-12.0); NEUTROPHILS # (AUTO) 7.2 /CMM (1.8-8.9); NEUTROPHILS % (AUTO) 70.4 % (43.0-81.0); PLATELET COUNT (AUTO) 221 /CMM (150-450); RED BLOOD CELL COUNT(AUTO) 3.81 MIL/uL (4.5-6.0); WHITE BLOOD COUNT (AUTO) 10.2 K/uL (4.3-11.0)
[2018-05-30 06:52] LABS: CALCIUM, SERUM 7.5 mg/dL (8.5-10.1); CREATININE 0.6 mg/dL (0.6-1.3); MAGNESIUM 1.7 mg/dL (1.8-2.4); PHOSPHORUS 1.6 mg/dL (2.5-4.9); POTASSIUM 3.5 mmol/L (3.5-5.1)
--- NOTE | 2018-05-30 07:47 | NUR ---
MS RN OPENING NOTES RECEIVED PATIENT IN STABLE CONDITION. IN NO APPARENT DISTRESS. BEDSIDE RAILS ARE UPX2. BED IS LOCKED AND LOWERED. CALL LIGHT IS WITHIN REACH. IV LINE IS INTACT AND PATENT. CALL LIGHT IS WITHIN REACH. WILL CONTINUE TO MONITOR PATIENT.
[2018-05-30 08:00] VITALS: BP 113/73
--- NOTE | 2018-05-30 08:28 | NUR ---
SCHUYLER left a follow up voicemail message for Goldie Zimmerman at [facility] [phone] Ext.[phone] regarding bed availability for pt. for their detox program.
[2018-05-30] MEDS: CLOTRIMAZOLE 1% 15 GM TUBE TP SCH (08:36)
[2018-05-30] MEDS ORDERED: Magnesium 1GM/D5W 100ML PREMIX 100 ML IV SCH (11:30)
--- NOTE | 2018-05-30 11:45 | NUR ---
AT 11:40 PATIENT STATED THAT HE WANTED TO LEAVE AMA. EXPLAINED IMPORTANCE OF PATIENT STAYING TO CONTINUE MEDICAL TREATMENT. PATIENT CONTINUED TO INSIST ON LEAVING. ADVICED THE PATIENT THAT I WOULD NEED A FORM SIGNED AND REMOVE HIS IV LINES (2). PATIENT AGREED. WHEN I RETURNED TO THE ROOM NO MORE THAN 5 MINUTES LATER THE PATIENT HAD LEFT. SECURITY WAS CALLED AND THE STAFF SEARCHED FOR THE PATIENT IN THE HOSPITAL AND IN THE NEARBY AREA. PATIENT WAS NOT FOUND. CALLED THE [place] [employer]PARTMENT TO REPORT THE INCIDENT. INCIDENT #[id number]. NURSING FRAME FEEDER NOTIFIED.
--- NOTE | 2018-05-30 12:18 | NUR ---
SCHUYLER was informed by pt's RN Maksim that pt. is wishing to leave AMA. SCHUYLER met with pt. bedside to discuss him wanting to leave AMA. Pt. is alert and oriented x4. Pt. stated, " I need to go get my EBT card because the office is closed on weekend." SCHUYLER discussed alf options and gave pt. list of [facility] [phone] and explained to him the picked edge sewing machine operator time and location for [facility]. SCHUYLER also gave pt. [facility] homeless Resource Directory. SCHUYLER encouraged pt. to follow up with Goldie at [facility] and gave him TTC contact information. The following resources were provide to the pt: Mental Health clinics [facility]eless [facility] [address] [place] [address] Homeless mentally ill people may be seen at [facility] on a walk-in basis. [facility] [address], 2nd [place] [address] Main Number: [facility] ([facility]): Contact [facility] [address] [place] [address] Clinic stated that walk-ins are welcomed, but they will be a long wait. No appointments. Services: mental health services, medications, community life director for resource linkage. [facility] [place] [address] Healthcare Clinics for Homeless patients [facility] [address], [address] [place]. [place] Hours: M, T, Th, F 8:30AM-4:30PM Walk-ins allowed Provide medical screening and pharmacy [facility] [address] [place] [address] Hours M-F 8AM-3:30PM Walk-ins allowed Provide medical screening and pharmacy [place] [address] [place] [address] [phone] Hours 8AM-4:30PM Walk-ins allowed Provide medical screening and pharmacy Alcohol and Drug Treatment Programs [facility] Substance Abuse Self-helpline ([facility]) Contact number . Call the hotline and the red mud thickener operator will screen and link individual to an appropriate program. Must have Medi-georgina or be Med-georgina eligible. [facility] [address] [place] [address] [facility] (contact Goldie) [address] [place] [address] [facility] Rehabilitation Program (Oriental Orthodox based) [address] [place] [address] (Six months program and need to work for 8 hrs per day while in treatment) [facility] (No insurance required) [facility] [address] [place], [place] [id number] Pt. was provided with a pair of clothing. Homeless Patient Waiver Form was signed by the pt. and placed in pt's chart. Pt. was given a TAP card. JEFFERY Koehler and DARIA Hayden were updated with pt's discharge plan. No other social service needs are requested at this time. SW is available, if needed. Addendum: 05/30/18 at 1231 by MARQUITA VELASQUEZ SW Homeless patient discharge checklist was completed.
[2018-05-30] MEDS ORDERED: K PHOS NEUTRAL 250 MG TABLET PO ONE (13:30)
== END 2018-05-30 11:40 | disposition left against medical advice (07) | DRG 720 ==
LOC: TELE 20:13 → MED 05-28 09:17
PROVIDERS: ADMIT Nurse Practitioner Acute Care; ATTEND Registered Nurse
DX: A41.9 Sepsis, unspecified organism (principal); J69.0 Pneumonitis due to inhalation of food and vomit; G92 Toxic encephalopathy; E43 Unspecified severe protein-calorie malnutrition; R64 Cachexia; E10.42 Type 1 diabetes mellitus with diabetic polyneuropathy; F11.11 Opioid abuse, in remission; B35.1 Tinea unguium; E10.65 Type 1 diabetes mellitus with hyperglycemia; E83.42 Hypomagnesemia; E87.6 Hypokalemia; F12.11 Cannabis abuse, in remission; F15.11 Other stimulant abuse, in remission; Z59.0 Homelessness; Z79.4 Long term (current) use of insulin; B35.3 Tinea pedis
CPT/HCPCS: 36415; 36600; 80048-TC; 80061-TC; 80202-TC; 82140-TC; 82962-TC; 83605-TC; 83735-TC; 84100-TC; 84443-TC; 85025-TC; 87081-TC; 97116-TC; 97530-TC; G0378; J1650; J1815; J2543; J3370; J3475; J7030; J7050; J7060

== ENCOUNTER 2018-07-26 18:18 | Inpatient (IN) | payer MEDICAID ==
[~2018-07-26] VITALS: Ht 165.1 cm; Wt 48.1 kg
[~2018-07-26 18:18] MED LIST changes: +BLOO-668 IN; +INSU100I30 SQ; -INSU100V7 SQ
[2018-07-26] MEDS ORDERED: IBUPROFEN 600 MG TABLET PO ONE ×2 (19:30→20:38)
[2018-07-26 21:53] LABS: BASOPHILS # (AUTO) 0.1 /CMM (0.0-0.2); BASOPHILS % (AUTO) 0.9 % (0.0-2.0); EOSINOPHILS % (AUTO) 0.4 % (0.0-6.0); HEMATOCRIT 39 % (39-51); LYMPHOCYTES # (AUTO) 1.3 /CMM (0.8-4.8); MEAN CORPUSCULAR HGB CONC 33 g/dl (31.0-36.0); MEAN CORPUSCULAR VOLUME 93 fL (80-96); MONOCYTES # (AUTO) 0.9 /CMM (0.1-1.30); MONOCYTES % (AUTO) 5.6 % (2.0-12.0); NEUTROPHILS # (AUTO) 14.3 /CMM (1.8-8.9); NEUTROPHILS % (AUTO) 85.1 % (43.0-81.0); PLATELET COUNT (AUTO) 264 /CMM (150-450); RED BLOOD CELL COUNT(AUTO) 4.23 MIL/uL (4.5-6.0); WHITE BLOOD COUNT (AUTO) 16.8 K/uL (4.3-11.0)
[2018-07-26 22:12] LABS: ALBUMIN 3.3 g/dL (3.4-5.0); BILIRUBIN,TOTAL 0.6 mg/dL (0.2-1.0); CALCIUM, SERUM 8.6 mg/dL (8.5-10.1); CREATININE 0.9 mg/dL (0.6-1.3); TOTAL PROTEIN, SERUM 8.1 g/dL (6.4-8.2)
[2018-07-26] MEDS ORDERED: IV NS 0.9% 1,000 ML BAG IV ONE (23:00)
[2018-07-26] MEDS ORDERED: INSULIN REGULAR, HUMAN 100 UNIT/ML 10 ML VIAL ONE (23:33)
[2018-07-27] VITALS (26 sets, daily range): BP systolic 87–147; BP diastolic 32–87
[2018-07-27] MEDS ORDERED: INSULIN REGULAR, HUMAN 100 UNIT/ML 10 ML VIAL SQ ONE
[2018-07-27] MEDS ORDERED: MAG HYDROX/AL HYDROX/SIMETH 30 ML UDC PO PRN (03:30)
[2018-07-27] MEDS ORDERED: MAGNESIUM HYDROXIDE 30 ML UDC PO PRN (03:30)
[2018-07-27] MEDS ORDERED: Z GUARD REMEDY 2 OZ OINT TP PRN (03:30)
[2018-07-27] MEDS ORDERED: ONDANSETRON HCL/PF 4 MG/2 ML VIAL IVP PRN (03:30)
[2018-07-27] MEDS ORDERED: DEXTROSE 50%-WATER 50 ML DISP.SYRIN IV PRN (03:30)
[2018-07-27] MEDS ORDERED: ACETAMINOPHEN 325 MG TABLET PO PRN (03:30)
[2018-07-27] MEDS: IV NS 0.9% 1,000 ML IV PRN ×2 (04:19→17:03)
[2018-07-27 04:49] LABS: BASOPHILS % (AUTO) 0.3 % (0.0-2.0); EOSINOPHILS % (AUTO) 0.3 % (0.0-6.0); HEMATOCRIT 40 % (39-51); HEMOGLOBIN 13.2 g/dL (13.5-17.5); LYMPHOCYTES # (AUTO) 1.7 /CMM (0.8-4.8); MEAN CORPUSCULAR HGB CONC 33 g/dl (31.0-36.0); MEAN CORPUSCULAR VOLUME 92 fL (80-96); MONOCYTES # (AUTO) 0.7 /CMM (0.1-1.30); MONOCYTES % (AUTO) 5.6 % (2.0-12.0); NEUTROPHILS # (AUTO) 9.5 /CMM (1.8-8.9); NEUTROPHILS % (AUTO) 79.8 % (43.0-81.0); PLATELET COUNT (AUTO) 282 /CMM (150-450); RED BLOOD CELL COUNT(AUTO) 4.38 MIL/uL (4.5-6.0); WHITE BLOOD COUNT (AUTO) 11.9 K/uL (4.3-11.0)
[2018-07-27 05:01] LABS: CALCIUM, SERUM 8.3 mg/dL (8.5-10.1); CREATININE 0.7 mg/dL (0.6-1.3); MAGNESIUM 1.8 mg/dL (1.8-2.4); PHOSPHORUS 3.4 mg/dL (2.5-4.9); POTASSIUM 3.1 mmol/L (3.5-5.1)
[2018-07-27 05:20] LABS: ABG BASE EXCESS 6.1 mmol/L; ABG OXYGEN SATURATION 99.4 % (92.0-98.5); ABG PH 7.461 (7.350-7.450); ABG PO2 400.6 mmHg (75.0-100.0); AaDO2 268.4 mmHg; COHb 0.5 % (0.5-1.5); MetHb 0.6 % (0.0-1.5); O2Hb 98.3 % (94.0-97.0); SITE, ABG Right Radial; VENT MODE, BG NRB
[2018-07-27 05:32] LABS: THYROID STIMULATING HORMONE 1.605 uIU/mL (0.358-3.74)
[2018-07-27] MEDS ORDERED: IV NS 0.9% 500 ML IV ONE (06:30)
[2018-07-27 07:46] LABS: BILIRUBIN,DIRECT 0.1 mg/dL (0.0-0.2)
[2018-07-27] MEDS: BLOOD SUGAR DIAGNOSTIC 1 EACH STRIP IN SCH ×4 (07:48→21:13)
[2018-07-27] MEDS: LISINOPRIL (5MG) 5 MG TABLET PO SCH (09:00)
[2018-07-27] MEDS ORDERED: POTASSIUM CHLORIDE 20 MEQ TAB.PRT.SR PO SCH (10:00)
[2018-07-27] MEDS ORDERED: MORPHINE SULFATE INJ 4 MG/ML DISP.SYRIN IV ONE (10:30)
[2018-07-27] MEDS: INSULIN REGULAR, HUMAN 100 UNIT/ML 3 ML VIAL SQ PRN ×3 (11:58→21:15)
[2018-07-27] MEDS: LORAZEPAM INJ 2 MG/ML VIAL IV PRN ×3 (12:00→23:14)
[2018-07-27 13:27] LABS: APPEARANCE,URINE CLEAR (CLEAR); BILIRUBIN,URINE 1+ (NEGATIVE); BLOOD, URINE NEGATIVE Ery/uL (NEGATIVE); COLOR,URINE DARK YELLO (YELLOW); KETONES,URINE 1+ (NEGATIVE); LEUKOCYTE ESTERASE ,URINE NEGATIVE (NEGATIVE); NITRITE, URINE NEGATIVE (NEGATIVE); PROTEIN,URINE TRACE mg/dl (NEGATIVE); UGLUCOSE 3+ mg/dL (NEGATIVE); UROBILINOGEN,URINE 0.2 EU/dL (0.2)
[2018-07-27 13:34] LABS: SQUAMOUS EPITHELIAL CELL,UR Moderate /HPF (None Seen)
[2018-07-27 13:35] LABS: BACTERIA,URINE Rare /HPF (None Seen); MUCUS,URINE Moderate /LPF (None Seen)
[2018-07-27 13:36] LABS: CALCIUM OXALATE CRYSTALS,UR Few /HPF (None Seen); RBC,URINE 0-2 /HPF (0-2); WBC,URINE 0-2 /HPF (0-3)
[2018-07-27] MEDS: INSULIN GLARGINE, 100 UNIT/ML CARTRIDGE SQ SCH (21:16)
[2018-07-27] MEDS: MORPHINE SULFATE INJ 2 MG/ML DISP.SYRIN IV PRN (22:19)
[2018-07-28] VITALS (35 sets, daily range): BP systolic 99–151; BP diastolic 58–89
[2018-07-28] MEDS: LORAZEPAM INJ 2 MG/ML VIAL IV PRN ×2 (03:48→15:33)
[2018-07-28 04:42] LABS: BASOPHILS % (AUTO) 0.4 % (0.0-2.0); EOSINOPHILS % (AUTO) 0.9 % (0.0-6.0); HEMATOCRIT 38 % (39-51); HEMOGLOBIN 12.6 g/dL (13.5-17.5); LYMPHOCYTES # (AUTO) 2.1 /CMM (0.8-4.8); LYMPHOCYTES % (AUTO) 17.2 % (20.0-44.0); MEAN CORPUSCULAR HGB CONC 33 g/dl (31.0-36.0); MEAN CORPUSCULAR VOLUME 92 fL (80-96); MONOCYTES # (AUTO) 0.9 /CMM (0.1-1.30); MONOCYTES % (AUTO) 7.6 % (2.0-12.0); NEUTROPHILS # (AUTO) 9.2 /CMM (1.8-8.9); NEUTROPHILS % (AUTO) 73.9 % (43.0-81.0); PLATELET COUNT (AUTO) 241 /CMM (150-450); RED BLOOD CELL COUNT(AUTO) 4.12 MIL/uL (4.5-6.0); WHITE BLOOD COUNT (AUTO) 12.5 K/uL (4.3-11.0)
[2018-07-28 04:54] LABS: CALCIUM, SERUM 8.3 mg/dL (8.5-10.1); CREATININE 0.5 mg/dL (0.6-1.3); MAGNESIUM 1.7 mg/dL (1.8-2.4); PHOSPHORUS 2.4 mg/dL (2.5-4.9)
[2018-07-28] MEDS: IV NS 0.9% 1,000 ML IV PRN ×2 (06:18→23:04)
[2018-07-28] MEDS: MORPHINE SULFATE INJ 2 MG/ML DISP.SYRIN IV PRN (06:34)
[2018-07-28] MEDS ORDERED: MINERAL OIL/PETROLATUM,WHITE 120 GM JAR TP PRN (08:00)
[2018-07-28] MEDS: BLOOD SUGAR DIAGNOSTIC 1 EACH STRIP IN SCH ×4 (08:16→22:52)
[2018-07-28] MEDS: LISINOPRIL (5MG) 5 MG TABLET PO SCH (08:16)
[2018-07-28] MEDS: Magnesium 1GM/D5W 100ML PREMIX 100 ML IV SCH ×2 (11:32→12:41)
[2018-07-28] MEDS ORDERED: K PHOS NEUTRAL 250 MG TABLET PO ONE (15:30)
[2018-07-28] MEDS: GLUCERNA SHAKE 237 ML CAN PO SCH ×2 (16:02→16:48)
[2018-07-28] MEDS: INSULIN REGULAR, HUMAN 100 UNIT/ML 3 ML VIAL SQ PRN ×2 (16:27→22:56)
[2018-07-28] MEDS: INSULIN GLARGINE, 100 UNIT/ML CARTRIDGE SQ SCH (22:55)
[2018-07-29 04:00] VITALS: BP 109/70
[2018-07-29 06:55] LABS: CALCIUM, SERUM 8.1 mg/dL (8.5-10.1); CREATININE 0.6 mg/dL (0.6-1.3); MAGNESIUM 1.7 mg/dL (1.8-2.4); PHOSPHORUS 3.7 mg/dL (2.5-4.9); POTASSIUM 3.6 mmol/L (3.5-5.1)
[2018-07-29 08:00] VITALS: BP 130/82
[2018-07-29] MEDS: GLUCERNA SHAKE 237 ML CAN PO SCH ×3 (09:14→17:47)
[2018-07-29] MEDS: BLOOD SUGAR DIAGNOSTIC 1 EACH STRIP IN SCH ×4 (09:14→21:55)
[2018-07-29] MEDS: LISINOPRIL (5MG) 5 MG TABLET PO SCH (09:14)
[2018-07-29] MEDS: INSULIN REGULAR, HUMAN 100 UNIT/ML 3 ML VIAL SQ PRN ×4 (09:16→21:56)
[2018-07-29] MEDS: Magnesium 1GM/D5W 100ML PREMIX 100 ML IV SCH ×2 (11:23→13:59)
[2018-07-29] MEDS: IV NS 0.9% 1,000 ML IV PRN (11:23)
[2018-07-29 12:41] LABS: BASOPHILS # (AUTO) 0.1 /CMM (0.0-0.2); BASOPHILS % (AUTO) 0.4 % (0.0-2.0); EOSINOPHILS % (AUTO) 0.1 % (0.0-6.0); HEMATOCRIT 37 % (39-51); HEMOGLOBIN 12.6 g/dL (13.5-17.5); LYMPHOCYTES # (AUTO) 1.1 /CMM (0.8-4.8); LYMPHOCYTES % (AUTO) 6.1 % (20.0-44.0); MEAN CORPUSCULAR HGB CONC 34 g/dl (31.0-36.0); MEAN CORPUSCULAR VOLUME 92 fL (80-96); MONOCYTES # (AUTO) 1.1 /CMM (0.1-1.30); MONOCYTES % (AUTO) 6.3 % (2.0-12.0); NEUTROPHILS # (AUTO) 15.1 /CMM (1.8-8.9); NEUTROPHILS % (AUTO) 87.1 % (43.0-81.0); PLATELET COUNT (AUTO) 203 /CMM (150-450); RED BLOOD CELL COUNT(AUTO) 4.01 MIL/uL (4.5-6.0); WHITE BLOOD COUNT (AUTO) 17.3 K/uL (4.3-11.0)
[2018-07-29 13:29] LABS: BAND % (MANUAL) 17 % (0.0-5.0); LYMPHOCYTES % (MANUAL) 9 % (16-48); MONOCYTES % (MANUAL) 8 % (0-11.0); NEUTROPHILS % (MANUAL) 66 (42-76)
[2018-07-29 16:00] VITALS: BP 133/86
[2018-07-29] MEDS: LORAZEPAM INJ 2 MG/ML VIAL IV PRN (19:00)
[2018-07-29 20:00] VITALS: BP 96/57
[2018-07-29] MEDS: INSULIN GLARGINE, 100 UNIT/ML CARTRIDGE SQ SCH (21:57)
[2018-07-30 04:00] VITALS: BP 98/65
[2018-07-30] MEDS: IV NS 0.9% 1,000 ML IV PRN (05:45)
[2018-07-30 07:36] LABS: BASOPHILS % (AUTO) 0.1 % (0.0-2.0); HEMATOCRIT 36 % (39-51); HEMOGLOBIN 11.9 g/dL (13.5-17.5); LYMPHOCYTES % (AUTO) 5.9 % (20.0-44.0); MEAN CORPUSCULAR HGB CONC 33 g/dl (31.0-36.0); MEAN CORPUSCULAR VOLUME 91 fL (80-96); MONOCYTES # (AUTO) 0.8 /CMM (0.1-1.30); MONOCYTES % (AUTO) 4.4 % (2.0-12.0); NEUTROPHILS % (AUTO) 89.6 % (43.0-81.0); PLATELET COUNT (AUTO) 195 /CMM (150-450); WHITE BLOOD COUNT (AUTO) 17.9 K/uL (4.3-11.0)
[2018-07-30 07:51] LABS: CALCIUM, SERUM 7.8 mg/dL (8.5-10.1); CREATININE 0.5 mg/dL (0.6-1.3); MAGNESIUM 1.9 mg/dL (1.8-2.4); PHOSPHORUS 2.5 mg/dL (2.5-4.9)
[2018-07-30 08:00] VITALS: BP 96/61
[2018-07-30 08:03] LABS: POTASSIUM 2.7 mmol/L (3.5-5.1)
[2018-07-30] MEDS: BLOOD SUGAR DIAGNOSTIC 1 EACH STRIP IN SCH ×4 (08:11→22:19)
[2018-07-30] MEDS: GLUCERNA SHAKE 237 ML CAN PO SCH ×3 (08:12→17:16)
[2018-07-30] MEDS: HYDROCODONE/APAP 5/325MG 1 EACH TABLET PO PRN ×2 (08:42→19:52)
[2018-07-30] MEDS ORDERED: LEVOFLOXACIN 500 MG /D5W 100ML 500 MG in PREMIX 1 EA IV SCH (09:00)
[2018-07-30] MEDS: LISINOPRIL (5MG) 5 MG TABLET PO SCH (09:00)
[2018-07-30] MEDS: POTASSIUM CL. PREMIX PERIPHER. 50 ML IV SCH ×7 (09:03→16:45)
[2018-07-30] MEDS: IV NS 0.9% 1,000 ML IV SCH ×2 (09:27→14:06)
[2018-07-30] MEDS: LORAZEPAM INJ 2 MG/ML VIAL IV PRN ×3 (09:32→19:53)
[2018-07-30] MEDS: INSULIN REGULAR, HUMAN 100 UNIT/ML 3 ML VIAL SQ PRN ×4 (09:42→22:25)
[2018-07-30 12:00] VITALS: BP 96/61
[2018-07-30 13:40] LABS: BILIRUBIN,DIRECT 0.2 mg/dL (0.0-0.2); BILIRUBIN,TOTAL 0.6 mg/dL (0.2-1.0)
[2018-07-30 16:00] VITALS: BP 91/55
[2018-07-30] MEDS ORDERED: FEE PK DOSING 1 MIN EA MC ONE (16:28)
[2018-07-30] MEDS: VANCOMYCIN 0.75 GM in IV D5W 250 ML IV SCH (17:02)
[2018-07-30] MEDS ORDERED: PIPERACILLIN /TAZOBACTAM 3.375 G in IV D5W 50 ML IV SCH (18:00)
[2018-07-30 20:00] VITALS: BP 103/65
[2018-07-30] MEDS: INSULIN GLARGINE, 100 UNIT/ML CARTRIDGE SQ SCH (22:23)
[2018-07-31] MEDS: PIPERACILLIN /TAZOBACTAM 3.375 G in IV D5W 100 ML IV SCH ×2 (00:25→13:38)
[2018-07-31] MEDS: HYDROCODONE/APAP 5/325MG 1 EACH TABLET PO PRN ×3 (00:25→13:18)
[2018-07-31] MEDS: LORAZEPAM INJ 2 MG/ML VIAL IV PRN ×4 (00:25→14:34)
[2018-07-31] MEDS: IV NS 0.9% 1,000 ML IV SCH (01:00)
[2018-07-31] MEDS: VANCOMYCIN 0.75 GM in IV D5W 250 ML IV SCH ×2 (01:24→09:05)
[2018-07-31 04:00] VITALS: BP 88/49
[2018-07-31 07:14] LABS: CALCIUM, SERUM 8.1 mg/dL (8.5-10.1); CREATININE 0.6 mg/dL (0.6-1.3); PHOSPHORUS 2.8 mg/dL (2.5-4.9); POTASSIUM 3.7 mmol/L (3.5-5.1)
[2018-07-31 08:00] VITALS: BP 85/55
[2018-07-31] MEDS: GLUCERNA SHAKE 237 ML CAN PO SCH ×2 (08:00→13:57)
[2018-07-31 08:04] LABS: BASOPHILS % (AUTO) 0.1 % (0.0-2.0); EOSINOPHILS % (AUTO) 1.2 % (0.0-6.0); HEMATOCRIT 29 % (39-51); HEMOGLOBIN 9.9 g/dL (13.5-17.5); LYMPHOCYTES # (AUTO) 1.3 /CMM (0.8-4.8); LYMPHOCYTES % (AUTO) 7.4 % (20.0-44.0); MEAN CORPUSCULAR HGB CONC 35 g/dl (31.0-36.0); MEAN CORPUSCULAR VOLUME 94 fL (80-96); MONOCYTES # (AUTO) 0.9 /CMM (0.1-1.30); MONOCYTES % (AUTO) 5.1 % (2.0-12.0); NEUTROPHILS # (AUTO) 14.8 /CMM (1.8-8.9); NEUTROPHILS % (AUTO) 86.2 % (43.0-81.0); PLATELET COUNT (AUTO) 169 /CMM (150-450); RED BLOOD CELL COUNT(AUTO) 3.05 MIL/uL (4.5-6.0); WHITE BLOOD COUNT (AUTO) 17.2 K/uL (4.3-11.0)
[2018-07-31 09:00] VITALS: BP 85/55
[2018-07-31] MEDS: LISINOPRIL (5MG) 5 MG TABLET PO SCH (09:00)
[2018-07-31] MEDS: BLOOD SUGAR DIAGNOSTIC 1 EACH STRIP IN SCH ×2 (09:04→13:57)
[2018-07-31] MEDS: INSULIN REGULAR, HUMAN 100 UNIT/ML 3 ML VIAL SQ PRN (09:19)
[2018-07-31] MEDS ORDERED: LACTOBACILLUS RHAMNOSUS GG 1 EACH CAP.SPRINK PO SCH (17:00)
== END 2018-07-31 15:45 | disposition left against medical advice (07) | DRG 720 ==
LOC: ER 18:22 → ICU 07-27 03:21 → MEDSG1 07-28 18:07
PROVIDERS: ADMIT Nurse Practitioner Acute Care; ATTEND Nurse Practitioner Acute Care
PROC: 0W9B30Z Drainage of Left Pleural Cavity with Drainage Device, Percutaneous Approach (ICD-10-PCS; principal; 2018-07-27)
DX: A41.9 Sepsis, unspecified organism (principal); J69.0 Pneumonitis due to inhalation of food and vomit; S27.2XXA Traumatic hemopneumothorax, initial encounter; E11.65 Type 2 diabetes mellitus with hyperglycemia; E44.1 Mild protein-calorie malnutrition; S22.43XA Multiple fractures of ribs, bilateral, initial encounter for closed fracture; K86.1 Other chronic pancreatitis; E87.1 Hypo-osmolality and hyponatremia; Y09 Assault by unspecified means; Y92.89 Other specified places as the place of occurrence of the external cause; E86.1 Hypovolemia; Z59.0 Homelessness; D64.9 Anemia, unspecified; E87.6 Hypokalemia; Z79.4 Long term (current) use of insulin; Z91.19 Patient's noncompliance with other medical treatment and regimen; F19.10 Other psychoactive substance abuse, uncomplicated; D63.8 Anemia in other chronic diseases classified elsewhere; K02.9 Dental caries, unspecified
CPT/HCPCS: 36415; 36600; 70450-TC; 71045-TC; 71250-TC; 72125-TC; 73560-TC; 80048-TC; 80053-TC; 80061-TC; 80074; 80305; 81000-TC; 82247-TC; 82248-TC; 82803-TC; 82962-TC; 83605-TC; 83735-TC; 84100-TC; 84443-TC; 85025-TC; 87040-TC; 87081-TC; 87086-TC; 87806; 93307-TC; 97110-TC; 97116-TC; 97530-TC; A4216; A6402; A6403; G0378; J1815; J1956; J2060; J2270; J2405; J2543; J3370; J3475; J3480; J7030; J7040; J7060; L0172

== ENCOUNTER 2018-12-02 13:52 | Emergency (ER) | payer OTHER, MEDICAID ==
[~2018-12-02] VITALS: Ht 165.1 cm; Wt 51.3 kg
[2018-12-02 13:55] VITALS: BP 100/62
--- NOTE | 2018-12-02 13:55 | NUR ---
PT [id number], FROM [facility]IOR [facility]ARE, C/O NAUSEA VOMITING x 2 AND HIGH BLOOD SUGAR, PT IS AAOX4, NOT IN RESPIRATORY DISTRESS, HOOKED TO MONITOR, KEPT RESTED AND COMFORTABLE, WILL CONTINUE TO MONITOR.
--- NOTE | 2018-12-02 14:00 | NUR ---
IV LINE ESTABLISHED, BLOOD DRAWNED AND SENT TO LAB.
--- NOTE | 2018-12-02 14:10 | NUR ---
SEEN AND EXAMINED BY .
[2018-12-02] MEDS ORDERED: ONDANSETRON HCL/PF 4 MG/2 ML VIAL ONE (14:19)
[2018-12-02 14:27] LABS: BASOPHILS # (AUTO) 0.1 /CMM (0.0-0.2); BASOPHILS % (AUTO) 0.8 % (0.0-2.0); EOSINOPHILS % (AUTO) 3.1 % (0.0-6.0); HEMATOCRIT 39 % (39-51); HEMOGLOBIN 12.7 g/dL (13.5-17.5); LYMPHOCYTES # (AUTO) 2.4 /CMM (0.8-4.8); LYMPHOCYTES % (AUTO) 35.1 % (20.0-44.0); MEAN CORPUSCULAR HGB CONC 33 g/dl (31.0-36.0); MEAN CORPUSCULAR VOLUME 92 fL (80-96); MONOCYTES # (AUTO) 0.5 /CMM (0.1-1.30); NEUTROPHILS # (AUTO) 3.7 /CMM (1.8-8.9); PLATELET COUNT (AUTO) 361 /CMM (150-450); RED BLOOD CELL COUNT(AUTO) 4.19 MIL/uL (4.5-6.0); WHITE BLOOD COUNT (AUTO) 6.9 K/uL (4.3-11.0)
--- NOTE | 2018-12-02 14:31 | NUR ---
Patient does not wish to proceed with medical care recommended by Dr. Cameron. Patient given information related to possible complications, up to and including , which could occur as a result of leaving the hospital at this time. Patient verbalizes understanding of risks involved due to leaving against medical advice. Patient has signed AMA form.
[2018-12-02 14:43] LABS: ALANINE AMINOTRANSFERASE 34 U/L (12-78); ALBUMIN 2.9 g/dL (3.4-5.0); ALKALINE PHOSPHATASE 79 U/L (46-116); ASPARTATE AMINOTRANSFERASE 34 U/L (15-37); BILIRUBIN,DIRECT 0.1 mg/dL (0.0-0.2); BILIRUBIN,TOTAL 0.3 mg/dL (0.2-1.0); CALCIUM, SERUM 8.5 mg/dL (8.5-10.1); CARBON DIOXIDE 29 mmol/L (21-32); CHLORIDE 96 mmol/L (98-107); CREATININE 0.7 mg/dL (0.6-1.3); LIPASE 21 U/L (73-393); POTASSIUM 3.8 mmol/L (3.5-5.1); SODIUM SERUM 131 mmol/L (136-145); TOTAL PROTEIN, SERUM 7.8 g/dL (6.4-8.2); UREA NITROGEN, BLOOD 15 mg/dL (7-18)
[2018-12-02 14:46] LABS: GLUCOSE 431 mg/dL (74-106)
[2018-12-02] MEDS: ONDANSETRON HCL/PF 4 MG/2 ML VIAL IVP ONE (14:59)
[2018-12-02] MEDS: IV NS 0.9% 1,000 ML BAG IV ONE (14:59)
== END 2018-12-02 14:32 | disposition left against medical advice (07) ==
LOC: ER 13:56
DX: F11.10 Opioid abuse, uncomplicated (principal); E11.65 Type 2 diabetes mellitus with hyperglycemia; Z79.899 Other long term (current) drug therapy; Z79.4 Long term (current) use of insulin
CPT/HCPCS: 36415; 80048-TC; 80076-TC; 82962-TC; 83690-TC; 84484-TC; 85025-TC; J2405; J7030